=== PATIENT | female | born 1930 | race Caucasian/White ===

== ENCOUNTER 2021-01-03 17:07 | Emergency (ER) | payer MEDICARE, OTHER ==
[~2021-01-03] VITALS: Ht 152.4 cm; Wt 52.9 kg
[2021-01-03] MEDS ORDERED: LOSARTAN POTAS100 MG PO (17:43)
[2021-01-03] MEDS ORDERED: LEVOTHYROXINE25 MCG PO (17:43)
[2021-01-03] MEDS ORDERED: AMLODIPINE BESYL5 MG PO (17:43)
--- NOTE | 2021-01-03 22:33 | EKG ---
[facility] [address] [facility] [place] [address] Signed Normal sinus rhythm Right atrial enlargement Borderline ECG No previous ECGs available Confirmed by TIANA RIDER MD ([id number] on 01/03/2021 10:33:09 PM Electronically Signed By: TIANA RIDER MD 01/03/212232 PATIENT NAME: AMY BOBO Electrocardiogram DATE OF : [birth year] PHYSICIAN: TIANA RIDER MD REPORT #: [id number] REPORT IS CONFIDENTIAL AND NOT TO BE RELEASED WITHOUT AUTHORIZATION
== END 2021-01-03 20:35 | disposition home or self-care (01) ==
LOC: ED 17:07
DX: I16.0 Hypertensive urgency (principal); I10 Essential (primary) hypertension; E03.9 Hypothyroidism, unspecified; Z79.899 Other long term (current) drug therapy
CPT/HCPCS: 80053; 85025; 93005; 93010; 99283